=== PATIENT | male | born 1975 | race Caucasian/White ===

== ENCOUNTER 2023-09-20 06:55 | Day surgery (SDC) | payer BC, OTHER ==
[2023-09-20] MEDS ORDERED: ceFAZolin 2 GM Vial IVPUSH ONE (06:56)
[2023-09-20] MEDS ORDERED: Dexamethasone 4 MG/ML 5 ML MDV IVPUSH ONE (06:56)
[2023-09-20] MEDS ORDERED: Propofol 200 MG/20 ML SDV IV ONE (06:56)
[2023-09-20] MEDS ORDERED: Midazolam 1 MG/ML 2 ML SDV IV ONE (06:56)
[2023-09-20] MEDS ORDERED: Sodium Chloride 0.9% 10 ML Syringe FLUSH PRN (07:00)
[2023-09-20] MEDS: Lactated Ringers 1,000 ML IV SCH (07:46)
[2023-09-20] MEDS: Simethicone Drops 40 MG/0.6 ML 30 ML Bottle PO ONE (08:19)
[2023-09-20] MEDS: Albuterol/Ipratropium 3.0-0.5 MG/3 ML Neb Soln NEB ONE (09:57)
== END 2023-09-20 12:30 | disposition home or self-care (01) ==
LOC: FB.SDS 06:55
PROVIDERS: ATTEND Surgery
DX: Z12.11 Encounter for screening for malignant neoplasm of colon (principal); D12.6 Benign neoplasm of colon, unspecified; K57.30 Diverticulosis of large intestine without perforation or abscess without bleeding; Z86.010 Personal history of colon polyps
CPT/HCPCS: 00811; 45385; 71045; 88305; 94640; A9270; J0690; J1100; J2250; J2704; J7120; J7620